=== PATIENT | female | born 2000 | race American Indian/Alaskan Native ===

== ENCOUNTER 2021-05-28 03:41 | Emergency (ER) | payer OTHER ==
--- NOTE | 2021-05-28 04:02 | Emergency Department Report ---
ED Psych HPI - General Chief Complaint: Psych Stated Complaint: SI/SUICIDAL ATTEMPT (CUT WRIST) Time Seen by Provider: 05/28/21 03:58 Source: patient Mode of arrival: Ambulatory Limitations: No Limitations - History of Present Illness Initial Comments: Patient is a 21-year-old female that presents emergency room with complaints of suicidal ideations and suicide attempt by self-harm. Patient states she wanted to kill herself so she cut her wrist. Patient states she cut her left wrist. Patient is not sure when her last tetanus was. Patient denies recent travel. Patient denies recent international travel. Patient denies exposure to the novel coronavirus. Patient denies sick contacts. Patient denies fever and chills. Patient denies cough. Patient denies diarrhea. Patient denies coming in contact with anybody with symptoms of the novel coronavirus. MD Complaint: suicidal ideation, feels depressed -: Sudden Associated Psychiatric Symptoms: depression, suicidal ideation, racing thoughts History of same: Yes Quality: constant Improves With: none Worsens With: none Context: not taking psychiatric, significant life stressor Associated Symptoms: denies other symptoms If Self Harm: admits thoughts of, has plan, has acted on plan, self-inflicted trauma - Related Data Previous Rx's Medication Instructions Recorded Last Taken Type Iron Fum,Ps/Folic/Bcomp,C No.9 1 each PO DAILY 30 Days #30 capsule 05/28/21 Unknown Rx [Integra Plus Capsule] Allergies Allergy/AdvReac Type Severity Reaction Status Date / Time No Known Allergies Allergy Unverified 05/28/21 04:30 ED Review of Systems ROS: Stated complaint: SI/SUICIDAL ATTEMPT (CUT WRIST) Other details as noted in HPI Constitutional: denies: chills, fever Eyes: denies: eye pain, eye discharge, vision change ENT: denies: ear pain, throat pain Respiratory: denies: cough, shortness of breath, wheezing Cardiovascular: denies: chest pain, palpitations Endocrine: no symptoms reported Gastrointestinal: denies: abdominal pain, nausea, diarrhea Genitourinary: denies: urgency, dysuria, discharge Musculoskeletal: denies: back pain, joint swelling, arthralgia Skin: denies: rash, lesions Neurological: denies: headache, weakness, paresthesias Psychiatric: depression, suicidal thoughts. denies: anxiety Hematological/Lymphatic: denies: easy bleeding, easy bruising ED Past Medical Hx - Past Medical History Previous Medical History?: Yes Hx Psychiatric Treatment: Yes - Surgical History Past Surgical History?: No - Family History Family history: no significant - Social History Smoking Status: Never Smoker Substance Use Type: None - Medications Home Medications: Home Medications Medication Instructions Recorded Confirmed Last Taken Type Iron Fum,Ps/Folic/Bcomp,C No.9 1 each PO DAILY 30 Days #30 capsule 05/28/21 Unknown Rx [Integra Plus Capsule] ED Physical Exam - General Limitations: No Limitations General appearance: alert, in no apparent distress - Head Head exam: Present: atraumatic, normocephalic - Eye Eye exam: Present: normal appearance, PERRL Pupils: Present: normal accommodation - ENT ENT exam: Present: mucous membranes moist - Neck Neck exam: Present: normal inspection - Respiratory Respiratory exam: Present: normal lung sounds bilaterally. Absent: respiratory distress, wheezes, rales - Cardiovascular Cardiovascular Exam: Present: regular rate, normal rhythm. Absent: systolic murmur, diastolic murmur, rubs, gallop - GI/Abdominal GI/Abdominal exam: Present: soft, normal bowel sounds. Absent: distended, tenderness, guarding - Rectal Rectal exam: Present: deferred - Extremities Exam Extremities exam: Present: normal inspection (Except for left wrist laceration. Left wrist laceration is 6 cm across the wrist. Bleeding is controlled.), full ROM (No tendon involvement noted. Patient has full range of motion.), tenderness (Left wrist tenderness.) - Back Exam Back exam: Present: normal inspection - Neurological Exam Neurological exam: Present: alert, oriented X3 - Psychiatric Psychiatric exam: Present: depressed - Skin Skin exam: Present: warm, dry, intact, normal color. Absent: rash ED Course Vital Signs 05/28/21 05/28/21 05/28/21 04:41 05:13 10:11 Temperature 98.4 F 97.8 F Pulse Rate 88 84 Respiratory 16 18 Rate Blood Pressure 109/67 110/60 [Right] O2 Sat by Pulse 98 98 98 Oximetry 05/28/21 05/29/21 05/29/21 19:59 02:05 08:20 Temperature 100.2 F H 98.3 F Pulse Rate 76 68 Respiratory 16 16 Rate Blood Pressure 102/65 106/75 [Right] O2 Sat by Pulse 97 99 99 Oximetry 05/29/21 09:07 Temperature 98.3 F Pulse Rate 83 Respiratory 18 Rate Blood Pressure 116/67 [Right] O2 Sat by Pulse 98 Oximetry - Reevaluation(s) Reevaluation #1: Patient placed on a 1013 and ER hold. Patient will have labs done. 05/28/21 04:09 Reevaluation #2: I discussed procedure with patient. Patient agreed to procedure. See procedure note. Patient will be given a Tdap. Have any, the sewing techniques demonstrator was at bedside the entire procedure. 05/28/21 05:29 Reevaluation #3: Patient is medically cleared. Patient remained in the ER as an ER hold until the patient is cleared by our psychiatry team. Patient's on a 1013. Patient's final disposition will come from our psychiatry and mental health team. 05/28/21 06:28 - Laceration /Wound Repair Left Wrist Wound Location: upper extremity Wound's Depth, Shape: superficial, linear Wound Explored: clean Irrigated w/ Saline (ccs): 60 Betadine Prep?: Yes Anesthesia: 1% Lidocaine Wound Repaired With: sutures Suture Size/Type: 3:0, proline Number of Sutures: 9 (Horizontal interlocking) Sterile Dressing Applied?: Yes Progress: Patient tolerated procedure well. Edges well approximated. 8 horizontal interlocking mattress sutures placed. Sterile dressing applied. Minimal blood loss. ED Medical Decision Making - Lab Data Result diagrams: 05/29/21 05:20 05/29/21 05:20 - Medical Decision Making Patient is a 21-year-old female that presents emergency room with a suicide attempt and depression. Patient states she was depressed and suicidal patient decided to cut her left wrist. Patient sustained a 6 cm wrist laceration. I closed the laceration with sutures. See procedure note. Patient tolerated procedure well. Patient had labs done. Patient's labs were essentially unremarkable. Patient is medically cleared. Patient will remain in the ER as an ER hold and 1013 until the patient is cleared by our psychiatry team. Patient's final disposition will come from our psychiatry mental health team. Patient was given a tetanus while in ER. - Differential Diagnosis Suicide attempt, suicidal ideation, depression, wrist laceration Critical care attestation.: If time is entered above; I have spent that time in minutes in the direct care of this critically ill patient, excluding procedure time. ED Disposition Clinical Impression: Suicidal ideation, Suicide attempt Acute alcohol intoxication Qualifiers: Complication of substance-induced condition: uncomplicated Qualified Code(s): F10.920 - Alcohol use, unspecified with intoxication, uncomplicated Laceration of left wrist Qualifiers: Encounter type: initial encounter Qualified Code(s): S61.512A - Laceration without foreign body of left wrist, initial encounter Anemia Qualifiers: Anemia type: unspecified type Qualified Code(s): D64.9 - Anemia, unspecified Disposition: DC/TX-65 PSY HOSP/PSY UNIT Is pt being admited?: No Does the pt Need Aspirin: No Condition: Stable Additional Instructions: Professional and Agency Contacts To help [facility] Crises (23/05) [place] Crisis Line: Suicide Prevention Line: Crisis Text Line: Text START to 269571 Emergency: 911 Outpatient COMMUNITY Behavioral Health Resources: [facility]: [facility] [address] [place], [place] [address] [facility] [address] [place] [address] Tuesday thru Tuesday - 8am - 5pm Call to schedule an assessment for mental health and substance abuse programs [facility] Address: [address] [place] [address] Tuesday thru Tuesday- 7am-2pm [facility] Address: [address] [place] [address] Tuesday thrtuesday: 8:30AM-5PM Prescriptions: Iron Fum,Ps/Folic/Bcomp,C No.9 [Integra Plus Capsule] 1 each PO DAILY 30 Days #30 capsule Referrals: PRIMARY CARE,MD [Primary Care Provider] - 3-5 Days Time of Disposition: 06:28
[2021-05-28] MEDS ORDERED: LIDOCAINE (1%) 10 MG/1 ML VIAL 20 ML MDV INFILTRATI ONE ×2 (04:42→05:00)
[2021-05-28 04:44] LABS: Basophils # (Auto) 0.1 K/mm3 (0.0-0.1); Basophils % (Auto) 0.7 % (0.0-1.8); Eosinophils # (Auto) 0.1 K/mm3 (0.0-0.4); Eosinophils % (Auto) 1.2 % (0.0-4.3); Hematocrit 28.7 % (30.3-42.9); Hemoglobin 9.2 gm/dl (10.1-14.3); Lymphocytes # (Auto) 2.3 K/mm3 (1.2-5.4); Lymphocytes % (Auto) 30.1 % (13.4-35.0); Mean Corpuscular HGB Conc 32 % (30-34); Mean Corpuscular Volume 78 fl (79-97); Monocytes # (Auto) 0.7 K/mm3 (0.0-0.8); Monocytes % (Auto) 9.1 % (0.0-7.3); Platelet Count 246 K/mm3 (140-440); Red Blood Count 3.66 M/mm3 (3.65-5.03)
[2021-05-28 05:02] LABS: Blood Urea Nitrogen 8 mg/dL (7-17); Calcium 8.3 mg/dL (8.4-10.2); Hemolysis Index 9
[2021-05-28 05:26] LABS: BUN/Creatinine Ratio 13; Red Cell Distribution Width 21.3 % (13.2-15.2)
[2021-05-28] MEDS ORDERED: TETANUS,DIPH,PERTUSS(ACELL) VACCINE 0.5 ML SYRINGE IM ONE (05:30)
[2021-05-28] MEDS ORDERED: POTASSIUM CHLORIDE ER 20 MEQ TAB PO ONE (10:39)
--- NOTE | 2021-05-28 11:01 | Consultation ---
History of Present Illness - Reason for Consult Consult date: 05/28/21 Reason for consult: SI - History of Present Psychiatric Illness ED Note: Patient is a 21-year-old female that presents emergency room with complaints of suicidal ideations and suicide attempt by self-harm. Patient states she wanted to kill herself so she cut her wrist. Patient states she cut her left wrist. Patient is not sure when her last tetanus was. Alexandra Lucero is a 1 year old female with a history of Depression and Anxiety who presents to the ED with suicidal attempt via cutting her wrist. In my interview with the patient, she states stressors as " everything, I don't know where to start." The patient reports that she has being feeling depressing for about two to three years now; she reports taking Zoloft 200mg po daily since two months and attends weekly therapy sessions. The patient did not want talk, she said she was feeling very sleep. She denies any current suicidal ideation and denies hallucinations. PAST PSYCHIATRIC HISTORY: Diagnoses: MDD, Anxiety Suicide attempts or Self-harm behavior: X1 Prior psychiatric hospitalizations: Yes Substance Abuse history: Denies Previous psychiatric medications tried:Celexa, Trazodone, and Zoloft Outpatient treatment: Yes PAST MEDICAL HISTORY: None reported or document Family Psychiatric History: None reported or documented SOCIAL HISTORY Marital Status: Living Arrangements: Live alone Employment Status: employed Access to guns/weapons: denies Education: 12th grade History of Abuse: denies Legal History: denies REVIEW OF SYSTEMS Constitutional: Negative for weight loss ENT: Negative for stridor Respiratory: Negative for cough or hemoptysis All other systems reviewed and are negative MENTAL STATUS EXAMINATION General Appearance and Behavior: Age appropriate, wearing appropriate clothes, cooperative polite with questioning, good eye contact, cooperative Cooperation: cooperative Psychomotor Behavior: Psychomotor normal Mood: ok Affect and affective range: congruent with stated mood Thought Process: goal directed Thought Content: None Speech: Normal volume, Regular rate and rhythm Suicidal Ideation: Denies Homicidal Ideation: Denies hallucination: No Delusions: None elicited Impulse Control: Questionable Insight and Judgment: Poor Memory: Intact Attention: Divided Orientation: Alert and oriented Diagnoses: (1) Major depressive disorder, recurrent, severe- F33.2 Treatment Plan Prozac 20mg po Daily Vistaril 25mg po TID Sitter: Per primary Medical: Per primary Disposition: Recommend acute psychiatric inpatient treatment Will follow. Thanks Case staffed with Dr. Jauregui. Medications and Allergies Medications and Allergies Medications and Allergies Allergies Allergy/AdvReac Type Severity Reaction Status Date / Time No Known Allergies Allergy Unverified 05/28/21 04:30 Active Meds: Active Medications Fluoxetine HCl (Fluoxetine 20 Mg Cap) 20 mg PO DAILY [facility] Hydroxyzine Pamoate (Hydroxyzine Pamoate 25 Mg Cap) 25 mg PO TID [facility] Mental Status Exam - Vital signs Last Vital Signs Temp 97.8 F 05/28/21 10:11 Pulse 84 05/28/21 10:11 Resp 18 05/28/21 10:11 BP 110/60 05/28/21 10:11 Pulse Ox 98 05/28/21 10:11 Results Result Diagrams: 05/28/21 04:25 05/28/21 04:25 Abnormal lab results 05/28/21 05/28/21 05/28/21 Range/Units 04:25 04:25 04:25 Hgb 9.2 L (10.1-14.3) gm/dl Hct 28.7 L (30.3-42.9) % MCV 78 L (79-97) fl MCH 25 L (28-32) pg RDW 21.3 H (13.2-15.2) % [place] % (Auto) 9.1 H (0.0-7.3) % Potassium 3.3 L (3.6-5.0) mmol/L Glucose 110 H (65-100) mg/dL Calcium 8.3 L (8.4-10.2) mg/dL Salicylates < 0.3 L (2.8-20.0) mg/dL Acetaminophen (10.0-30.0) ug/mL Plasma/Serum Alcohol (0-0.07) % 05/28/21 05/28/21 Range/Units 04:25 04:25 Hgb (10.1-14.3) gm/dl Hct (30.3-42.9) % MCV (79-97) fl MCH (28-32) pg RDW (13.2-15.2) % [place] % (Auto) (0.0-7.3) % Potassium (3.6-5.0) mmol/L Glucose (65-100) mg/dL Calcium (8.4-10.2) mg/dL Salicylates (2.8-20.0) mg/dL Acetaminophen 5.0 L (10.0-30.0) ug/mL Plasma/Serum Alcohol 0.23 H (0-0.07) % All other labs normal.
[2021-05-28] MEDS: FLUoxetine 20 MG CAP PO SCH (12:00)
[2021-05-28] MEDS: hydrOXYzine PAMOATE 25 MG CAP PO SCH ×3 (12:00→22:10)
[2021-05-28 14:12] LABS: Amphetamine Screen,Urine Negative; Benzodiazepines Screen,Urine Negative; Bilirubin,Urine NEG (Negative); Blood,Urine NEG (Negative); Cannabinoid Screen,Urine Negative; Cocaine Screen,Urine Negative; Color,Urine Yellow (Yellow); Methadone Screen,Urine Negative; Mucus,Urine FEW /HPF; Opiate Screen,Urine Negative; Protein,Urine <15 mg/dL mg/dL (Negative); Urobilinogen,Urine < 2.0 mg/dL (<2.0)
[2021-05-28] MEDS ORDERED: ACETAMINOPHEN 500 MG TAB PO ONE (22:01)
[2021-05-29 05:32] LABS: Basophils # (Auto) 0.1 K/mm3 (0.0-0.1); Basophils % (Auto) 1.1 % (0.0-1.8); Eosinophils # (Auto) 0.2 K/mm3 (0.0-0.4); Eosinophils % (Auto) 2.7 % (0.0-4.3); Hematocrit 32.4 % (30.3-42.9); Hemoglobin 10.3 gm/dl (10.1-14.3); Lymphocytes # (Auto) 2.3 K/mm3 (1.2-5.4); Lymphocytes % (Auto) 37.4 % (13.4-35.0); Mean Corpuscular HGB Conc 32 % (30-34); Mean Corpuscular Volume 78 fl (79-97); Monocytes # (Auto) 0.6 K/mm3 (0.0-0.8); Monocytes % (Auto) 10.3 % (0.0-7.3); Platelet Count 264 K/mm3 (140-440); Red Blood Count 4.14 M/mm3 (3.65-5.03)
[2021-05-29 05:46] LABS: Alanine Aminotransferase 8 units/L (7-56); Albumin 4.2 g/dL (3.9-5); Blood Urea Nitrogen 10 mg/dL (7-17); Calcium 9.5 mg/dL (8.4-10.2); Hemolysis Index 3
[2021-05-29 05:50] LABS: Red Cell Distribution Width 21.3 % (13.2-15.2)
[2021-05-29 05:56] LABS: BUN/Creatinine Ratio 14
[2021-05-29] MEDS: hydrOXYzine PAMOATE 25 MG CAP PO SCH ×2 (09:00→15:00)
[2021-05-29 09:08] VITALS: BP 116/67
--- NOTE | 2021-05-29 09:50 | Progress Note ---
Subjective - Reason for Consult Consult date: 05/29/21 Reason for consult: depression, SI - Chief Complaint Chief complaint: The patient was seen today. She she "cut her wrist." The patient states she is depressed with thoughts of not wanting to live. When asking her what's going on to make her depressed, she states "I don't know." She denies hallucinations. REVIEW OF SYSTEMS Constitutional: Negative for weight loss ENT: Negative for stridor Respiratory: Negative for cough or hemoptysis All other systems reviewed and are negative MENTAL STATUS EXAMINATION General Appearance and Behavior: Age appropriate, wearing appropriate clothes, cooperative polite with questioning, good eye contact, cooperative Cooperation: cooperative Psychomotor Behavior: Psychomotor normal Mood: Depressed Affect and affective range: congruent with stated mood Thought Process: goal directed Thought Content: None Speech: Normal volume, Regular rate and rhythm Suicidal Ideation: Yes Homicidal Ideation: Denies hallucination: No Delusions: None elicited Impulse Control: Questionable Insight and Judgment: Poor Memory: Intact Attention: Divided Orientation: Alert and oriented Diagnoses: (1) Major depressive disorder, recurrent, severe- F33.2 Treatment Plan 1013 Increased Prozac 30mg po Daily Sitter: Per primary Medical: Per primary Disposition: Recommend acute psychiatric inpatient treatment Will follow. Thanks Case staffed with Dr. Jauregui. Mental Status Exam - Vital signs Last Vital Signs Temp 98.3 F 05/29/21 09:07 Pulse 83 05/29/21 09:07 Resp 18 05/29/21 09:07 BP 116/67 05/29/21 09:07 Pulse Ox 98 05/29/21 09:07
--- NOTE | 2021-05-29 10:09 | Emergency Department Report ---
Blank Doc - Documentation Documentation: This patient presented to the emergency department early yesterday morning with complaints of suicidal ideations and visible self-harm as she cut her wrist. She has been seen by the psychiatric team over the past 2 days and the patient remains a 1013 and on ED hold with the plan for inpatient stabilization. Patient appears to have a major depressive disorder and the psychiatry team has increased her Prozac. Labs have been reviewed and are unremarkable including CBC, metabolic panel, blood alcohol level, urinalysis and UDS. Vital signs have been reassuring during her ED course including being afebrile. The patient remains medically cleared for psychiatric placement. We will continue to monitor her during her ED course. I spoke to the psychiatric emergency department nurse, Brionna, who says that there have been no events overnight or anything signed out to her this morning. Vital Signs - 24 hr 05/28/21 05/28/21 05/29/21 10:11 19:59 02:05 Temperature 97.8 F 100.2 F H 98.3 F Pulse Rate 84 76 68 Respiratory 18 16 16 Rate Blood Pressure 110/60 102/65 106/75 [Right] O2 Sat by Pulse 98 97 99 Oximetry 05/29/21 05/29/21 08:20 09:07 Temperature 98.3 F Pulse Rate 83 Respiratory 18 Rate Blood Pressure 116/67 [Right] O2 Sat by Pulse 99 98 Oximetry
[2021-05-29] MEDS: FLUoxetine 20 MG CAP PO SCH (10:25)
[2021-05-29] MEDS ORDERED: FLUoxetine 10 MG TAB PO SCH (10:30)
[2021-05-29] MEDS ORDERED: ACETAMINOPHEN 325 MG TAB PO ONE (17:10)
== END 2021-05-29 20:29 ==
LOC: ED 03:41 → EEVIPCON 03:41 → ED 05-29 20:29
DX: S61.512A Laceration without foreign body of left wrist, initial encounter (principal); R45.851 Suicidal ideations; F10.920 Alcohol use, unspecified with intoxication, uncomplicated; Z20.822 Contact with and (suspected) exposure to COVID-19; D64.9 Anemia, unspecified; X78.1XXA Intentional self-harm by knife, initial encounter; Y93.89 Activity, other specified; Y92.89 Other specified places as the place of occurrence of the external cause; Y99.8 Other external cause status
CPT/HCPCS: 12002; 36415; 80048; 80053; 80307; 81001; 84703; 85025; 90471; 90715; 99285; Q0177; U0003; 80320; G0480

== ENCOUNTER 2021-06-10 20:50 | Emergency (ER) | payer OTHER ==
--- NOTE | 2021-06-10 23:23 | Emergency Department Report ---
Suture/Staple Removal - HPI Chief Complaint: Laceration/Recheck/Suture Stated Complaint: REMOVAL OF STITCHES Time Seen by Provider: 06/10/21 23:18 When Sutures or Justyna Placed: 11-14 Days Ago Wound Location: left wirst suture removal ED Review of Systems ROS: Stated complaint: REMOVAL OF STITCHES Other details as noted in HPI Comment: All other systems reviewed and negative ED Past Medical Hx - Past Medical History Hx Hypertension: No Hx CVA: No Hx Heart Attack/AMI: No Hx Congestive Heart Failure: No Hx Diabetes: No Hx Deep Vein Thrombosis: No Hx Pulmonary Embolism: No Hx GERD: No Hx Liver Disease: No Hx Renal Disease: No Hx Sickle Cell Disease: No Hx Arthritis: No Hx Headaches / Migraines: No Hx Seizures: No Hx Kidney Stones: No Hx Psychiatric Treatment: Yes Hx Asthma: No Hx COPD: No Hx Tuberculosis: No Hx Dementia: No Hx HIV: No Additional medical history: pt is anemic - Surgical History Hx Coronary Stent: No Hx Open Heart Surgery: No Hx Pacemaker: No Hx Internal Defibrillator: No Hx Cholecystectomy: No Hx Appendectomy: No Hx Breast Surgery: No - Social History Smoking Status: Never Smoker Substance Use Type: None - Medications Home Medications: Home Medications Medication Instructions Recorded Confirmed Last Taken Type Iron Fum,Ps/Folic/Bcomp,C No.9 1 each PO DAILY 30 Days #30 capsule 05/28/21 Unknown Rx [Integra Plus Capsule] Suture Removal Exam - Exam General: Vital signs noted. No distress. Alert and acting appropriately. Wound: No Pathologic Erythema, No Tenderness, No Drainage, No Pus, No Wound Dehiscence Other Systems: All other systems reviewed and are unremarkable. - Procedure Description Procedures done: Suture removal with no complications by Bladimir Nurse Critical care attestation.: If time is entered above; I have spent that time in minutes in the direct care of this critically ill patient, excluding procedure time. ED Disposition Clinical Impression: Encounter for removal of sutures Disposition: DC-01 TO HOME OR SELFCARE Is pt being admited?: No Does the pt Need Aspirin: No Condition: Stable Instructions: Wound Closure Removal, Care After Referrals: [facility] [Provider Group] - 3-5 Days
[2021-06-10 23:49] VITALS: BP 110/72
== END 2021-06-10 23:49 | disposition home or self-care (01) ==
LOC: ED 20:50
DX: S61.512D Laceration without foreign body of left wrist, subsequent encounter (principal); X58.XXXD Exposure to other specified factors, subsequent encounter